=== PATIENT | female | born 1965 | race African-American/Black ===

== ENCOUNTER 2017-11-11 09:56 | Emergency (ER) | payer MEDICAID ==
[~2017-11-11] VITALS: Ht 160 cm; Wt 77.0 kg
[~2017-11-11 09:56] MED LIST: B50 PO; FERR325T23 PO
[2017-11-11] MEDS ORDERED: ACETAMINOPHEN 325MG TABLET PO ONE (12:30)
[2017-11-11] MEDS ORDERED: KETOROLAC 60MG/2ML VIAL IM ONE (14:30)
[2017-11-11 14:34] VITALS: BP 116/71
== END 2017-11-11 14:57 | disposition home or self-care (01) ==
LOC: ER 11:11
DX: M54.2 Cervicalgia (principal); M79.1 Myalgia; R29.3 Abnormal posture; I10 Essential (primary) hypertension
CPT/HCPCS: 96372; 99283; J1885

== ENCOUNTER 2018-06-04 12:13 | Emergency (ER) | payer MEDICAID ==
[~2018-06-04] VITALS: Ht 160 cm; Wt 65.0 kg
[2018-06-04] MEDS ORDERED: HYDROCODONE/ACETAMINOPHEN 5/325MG TABLET PO ONE (12:45)
[2018-06-04] MEDS ORDERED: ONDANSETRON 4MG ODT PO ONE (12:45)
[2018-06-04 13:17] LABS: CLARITY URINE CLOUDY (CLEAR); COLOR URINE YELLOW (YELLOW); KETONES URINE TRACE (NEGATIVE); LEUKOCYTE ESTERASE URINE 1+ (NEGATIVE); NITRITE URINE NEGATIVE (NEGATIVE); OCCULT BLOOD URINE NEGATIVE (NEGATIVE); PROTEIN URINE NEGATIVE (NEGATIVE); SPECIFIC GRAVITY URINE 1.026 (1.005-1.030); UROBILINOGEN URINE 0.2 E.U./dL (0.2-1.0)
[2018-06-04 13:56] VITALS: BP 107/61
== END 2018-06-04 14:08 | disposition home or self-care (01) ==
LOC: ER 13:40
DX: N39.0 Urinary tract infection, site not specified (principal); K59.00 Constipation, unspecified; I10 Essential (primary) hypertension; E11.9 Type 2 diabetes mellitus without complications
CPT/HCPCS: 72100; 74176; 81003; 99285; Q0162

== ENCOUNTER 2024-10-24 08:56 | Emergency (ER) | payer MEDICAID ==
[~2024-10-24] VITALS: Ht 160 cm; Wt 77.0 kg
[2024-10-24 09:00] VITALS: O2SAT 99
[2024-10-24 09:08] VITALS: BP 140/102; PULSE 79; RESP 14; TEMP 37.3; O2SAT 98
[2024-10-24 09:46] LABS: BASOPHILS % 0.4 % (0.0-2.0); EOSINOPHILS % 0.9 % (0.0-5.0); HEMATOCRIT. 35.2 % (36.0-48.0); HEMOGLOBIN. 11.5 g/dL (12.0-16.0); LYMPHOCYTES % 31.7 % (20.0-50.0); MEAN CORPUSCULAR HEMOGLOBIN 32.7 pg (28.0-32.0); MEAN CORPUSCULAR HGB CONC 32.8 g/dL (31.0-37.0); MEAN CORPUSCULAR VOLUME 99.7 fL (81.0-99.0); MEAN PLATELET VOLUME 7.2 fl (7.4-10.4); MONOCYTES % 5.9 % (2.0-8.0); NEUTROPHILS % 61.1 % (40.0-76.0); PLATELET 159 x1000/uL (130-400); RED BLOOD CELL COUNT 3.52 mill/uL (4.2-5.4); RED CELL DISTRIBUTION WIDTH 14.9 % (11.6-14.6); WHITE BLOOD COUNT 5.3 x1000/uL (4.5-11.0)
[2024-10-24 09:49] LABS: CLARITY URINE CLEAR (CLEAR); COLOR URINE YELLOW (YELLOW); GLUCOSE URINE NEGATIVE (NEGATIVE); KETONES URINE NEGATIVE (NEGATIVE); LEUKOCYTE ESTERASE URINE NEGATIVE (NEGATIVE); NITRITE URINE NEGATIVE (NEGATIVE); OCCULT BLOOD URINE NEGATIVE (NEGATIVE); PROTEIN URINE TRACE (NEGATIVE); SPECIFIC GRAVITY URINE 1.023 (1.005-1.030)
[2024-10-24 09:54] LABS: CARBON DIOXIDE 25 mEq/L (21-32); CHLORIDE 104 mEq/L (98-107); POTASSIUM 3.3 mEq/L (3.5-5.1); SODIUM 137 mEq/L (136-145)
[2024-10-24 09:55] LABS: CALCIUM 9.6 mg/dL (8.7-10.4)
[2024-10-24 09:59] LABS: CREATININE 0.7 mg/dL (0.6-1.0)
[2024-10-24 10:00] LABS: GLUCOSE 91 mg/dL (70-105); UREA NITROGEN BLOOD 9 mg/dL (9-23)
[2024-10-24 10:01] LABS: ALANINE AMINOTRANSFERASE 23 IU/L (10-49); ALBUMIN 4.5 g/dL (3.2-4.8); ASPARTATE AMINOTRANSFERASE 26 IU/L (<34)
[2024-10-24 10:02] LABS: BILIRUBIN DIRECT 0.1 mg/dL (<=3.0); BILIRUBIN TOTAL 0.5 mg/dL (0.1-1.0); PROTEIN TOTAL 7.8 g/dL (6.0-8.3)
[2024-10-24 10:16] LABS: BACTERIA URINE FEW; RBC URINE NONE SEEN /hpf (0-2); SQUAMOUS EPITHELIAL CELL URINE FEW /lpf (RARE/1+); WBC URINE 0-2 /hpf (0-2); YEAST URINE NONE SEEN
[2024-10-24] MEDS: OXYCODONE HCL/ACETAMINOPHEN 5/325MG TABLET PO ONE (10:52)
== END 2024-10-24 15:13 | disposition home or self-care (01) ==
LOC: ER 08:56
DX: R10.30 Lower abdominal pain, unspecified (principal); K80.20 Calculus of gallbladder without cholecystitis without obstruction; I10 Essential (primary) hypertension; F20.9 Schizophrenia, unspecified; D64.9 Anemia, unspecified; F10.90 Alcohol use, unspecified, uncomplicated; Y90.9 Presence of alcohol in blood, level not specified
CPT/HCPCS: 36415; 74176; 80048; 80076; 81003; 85025; 86850; 86900; 93005; 99284